=== PATIENT | female | born 1965 | race Caucasian/White ===

== ENCOUNTER 2017-10-14 01:01 | Emergency (ER) | payer BC ==
[~2017-10-14] VITALS: Ht 157.5 cm; Wt 92.1 kg
[2017-10-14 02:52] VITALS: BP 170/81
== END 2017-10-14 02:53 | disposition home or self-care (01) ==
LOC: EME 01:01
PROC: 0HQGXZZ Repair Left Hand Skin, External Approach (ICD-10-PCS; principal; 2017-10-14)
DX: S61.211A Laceration without foreign body of left index finger without damage to nail, initial encounter (principal); W26.8XXA Contact with other sharp object(s), not elsewhere classified, initial encounter; Y93.89 Activity, other specified; F41.9 Anxiety disorder, unspecified; I10 Essential (primary) hypertension; J45.909 Unspecified asthma, uncomplicated
CPT/HCPCS: 73140; 99281; 99283